=== PATIENT | female | born 1995 | race Hispanic/Latino ===

== ENCOUNTER 2019-01-10 14:33 | Emergency (ER) | payer SELFPAY ==
--- OUTSIDE RECORDS SUMMARY | 2019-01-10 14:35 | XMS REPORT ---
:1995 [facility] Address [address] [place] [address] Dr. Randle [address] [place] [id number] Care Team Providers Name Role Phone Unavailable Unavailable Unavailable Problems This patient has no known problems. Allergies, Adverse Reactions, Alerts This patient has no known allergies or adverse reactions. Medications This patient has no known medications.
[2019-01-10] MEDS ORDERED: DIPHENHYDRAMINE 50 MG/ML VIAL ONE (15:43)
[2019-01-10] MEDS ORDERED: ACETAMINOPHEN 500 MG TAB ONE (15:43)
[2019-01-10] MEDS ORDERED: NA CHLORIDE 0.9% 1,000 ML ONE (15:43)
[2019-01-10 15:50] LABS: Absolute Lymphocytes (CBC) 1.2 K/uL (0.7-4.9); Absolute Monocytes 0.9 K/uL (0.1-1.3); Absolute Neutrophil 11.3 K/uL (1.8-8.0); Basophils % 0.4 % (0-1.3); Eosinophils % 0.9 % (0-4.4); Lymphocytes % 8.9 % (15.3-44.8); MPV 8.7 fL (7.6-11.3); Monocytes % 6.6 % (3.3-12.3); RBC Red Blood Cell Count 3.52 M/uL (3.86-4.86)
[2019-01-10 16:14] LABS: BUN Blood Urea Nitrogen 7 mg/dL (7-18); Bicarbonate 24 mmol/L (21-32); Glucose Level 91 mg/dL (74-106); Potassium 3.8 mmol/L (3.5-5.1); Sodium Level 140 mmol/L (136-145)
[2019-01-10 17:12] LABS: Urine Bacteria 20-50 /HPF (<20); Urine Culture Reflex Order REFLEXED; Urine RBC <5 /HPF (NONE SEEN)
--- NOTE | 2019-01-10 17:41 | ER ---
Nurse's Notes [facility] Name: Marcelina Lozano Age: 23 yrs Sex: Female : 1995 Arrival Date: 01/10/2019 Time: 14:36 Bed Ultrasound Private MD: Diagnosis: Urinary tract infection, site not specified;Migraine Presentation: 01/10 14:48 Presenting complaint: Patient states: N/V that started this morning, pt reports being 5 sg months , reports using an RELIGIOUS EDUCATOR out of [place], denies any vaginal bleeding/or abd cramping or pressure at this time, reports having a headache with blurred vision. Transition of care: patient was not received from another setting of care. Onset of symptoms was January 10, 2019. Risk Assessment: Do you want to hurt yourself or someone else? Patient reports no desire to harm self or others. Initial Sepsis Screen: Does the patient meet any 2 criteria? No. Patient's initial sepsis screen is negative. Does the patient have a suspected source of infection? No. Patient's initial sepsis screen is negative. Care prior to arrival: None. 14:48 Method Of Arrival: Ambulatory sg 14:48 Acuity: CHRIS 3 sg RELIGIOUS EDUCATOR: 15:54 Verified jl7 Historical: - Allergies: 14:48 No Known Allergies; sg - PMHx: 14:48 Asthma; sg - PSHx: 14:48 None; sg - Immunization history:: Adult Immunizations up to date. - Social history:: Smoking status: Patient/guardian denies using tobacco. - Ebola Screening: : Patient negative for fever greater than or equal to 101.5 degrees Fahrenheit, and additional compatible Ebola Virus Disease symptoms Patient denies exposure to infectious person Patient denies travel to an Ebola-affected area in the 21 days before illness onset No symptoms or risks identified at this time. Screenin:30 Abuse screen: Denies threats or abuse. Denies injuries from another. Nutritional jl7 screening: No deficits noted. Tuberculosis screening: No symptoms or risk factors identified. Fall Risk IV access (20 points). Total Bhakta Fall Scale indicates No Risk (0-24 pts). Assessment: 15:30 General: Appears in no apparent distress. uncomfortable, Behavior is calm, cooperative, jl7 appropriate for age. Pain: Complains of pain in WATERS. Neuro: Level of Consciousness is awake, alert, obeys commands, Oriented to person, place, time, situation, Moves all extremities. Full function Gait is steady, Speech is normal. Cardiovascular: Patient's skin is warm and dry. Respiratory: Airway is patent Respiratory effort is even, unlabored, Respiratory pattern is regular, symmetrical. GI: Reports vomiting, Patient currently denies diarrhea, nausea. : No signs and/or symptoms were reported regarding the genitourinary system. EENT: Reports blurred vision. Derm: Skin is pink, warm \T\ dry. 17:54 Reassessment: Pt reports sudden onset of sharp RLQ pain the radiates across the lower jl7 abdomen, rated 8/10. ERP notified, US ordered. Pt will be discharged once US is complete and with a negative report. Vital Signs: 14:47 BP 120 / 75; Pulse 74; Resp 16; Temp 97.6; Pulse Ox 98% on R/A; sg Vitals: 15:54 Heart Tones 142 bpm. jl7 ED Course: 14:36 Patient arrived in ED. rg4 14:43 Arm band placed on. sg 14:49 Triage completed. sg 14:55 Candida Wasserman FNP-C is PHCP. kb 14:55 Favio Moon MD is Attending Physician. kb 15:30 Abdullahi Durán RN is Primary Nurse. jl7 15:30 Patient has correct armband on for positive identification. Bed in low position. Call jl7 light in reach. Side rails up X 1. Pulse ox on. NIBP on. Warm blanket given. 15:30 Initial lab(s) drawn, by me, sent to lab. Urine collected: clean catch specimen, jl7 cloudy. Inserted saline lock: 20 gauge in right antecubital area, using aseptic technique. Blood collected. 18:07 Ultrasound completed. Patient tolerated well. Patient moved back from ultrasound. aa4 18:08 US OB Limited In Process Unspecified. EDMS 18:21 No provider procedures requiring assistance completed. IV discontinued, intact, jl7 bleeding controlled, No redness/swelling at site. Pressure dressing applied. Administered Medications: 15:45 Drug: NS 0.9% 1000 ml Route: IV; Rate: 1000 ml; Site: right antecubital; jl7 16:45 Follow up: IV Status: Completed infusion; IV Intake: 1000ml jl7 15:46 Drug: Benadryl 12.5 mg Route: IVP; Site: right antecubital; jl7 16:30 Follow up: Response: No adverse reaction; Pain is decreased jl7 15:51 Drug: Tylenol 1000 mg Route: PO; jl7 16:30 Follow up: Response: No adverse reaction; Pain is decreased jl7 17:43 Drug: Macrobid 100 mg Route: PO; jl7 17:53 Follow up: Response: No adverse reaction jl7 Intake: 16:45 IV: 1000ml; Total: 1000ml. jl7 Outcome: 17:40 Discharge ordered by MD. renan 18:21 Discharged to home ambulatory. jl7 18:21 Condition: stable 18:21 Discharge instructions given to patient, family, Instructed on discharge instructions, follow up and referral plans. Demonstrated understanding of instructions, follow-up care. 18:22 Patient left the ED. jl7 18:25 Patient left the ED. kb Signatures: Dispatcher [employer] EDCandida Scott, REAR ADMIRAL-C REAR ADMIRAL-Garrick Cadet, RN Tiffanie Olmos4 Mahogany Daigle4 Abdullahi Durán RN RN jl7
--- NOTE | 2019-01-10 17:41 | EDPHYS ---
Physician Documentation [facility] Name: Marcelina Lozano Age: 23 yrs Sex: Female : 1995 Arrival Date: 01/10/2019 Time: 14:36 Bed Ultrasound Private MD: ED Physician Favio Moon HPI: 01/10 17:34 This 23 yrs old Female presents to ER via Ambulatory with complaints of kb Blurred Vision, Headache, Vomiting. 17:34 The patient complains of pain to the top of head. The patient describes the headache as kb constant. Onset: The symptoms/episode began/occurred this morning. Associated signs and symptoms: Pertinent positives: Photophobia blurred vision, vomiting. Severity of symptoms: At its worst the pain was moderate, in the emergency department the pain is unchanged. Headache History: The patient has had previous headaches and this one is similar to previous episodes. The symptoms are alleviated by nothing. the symptoms are aggravated by lights. The patient has experienced similar episodes in the past, a few times. The patient has not recently seen a physician. Pt reports migraine headache that started this morning. Reports photophobia, nausea, vomiting and blurred vision. Has history of migraines. Was seen by neuro years ago, but they didn't find the cause of the migraines at the time. . NEWSPAPER COPY EDITOR: 15:54 Verified jl7 Historical: - Allergies: 14:48 No Known Allergies; sg - PMHx: 14:48 Asthma; sg - PSHx: 14:48 None; sg - Immunization history:: Adult Immunizations up to date. - Social history:: Smoking status: Patient/guardian denies using tobacco. - Ebola Screening: : Patient negative for fever greater than or equal to 101.5 degrees Fahrenheit, and additional compatible Ebola Virus Disease symptoms Patient denies exposure to infectious person Patient denies travel to an Ebola-affected area in the 21 days before illness onset No symptoms or risks identified at this time. ROS: 17:33 Constitutional: Negative for fever, chills, and weight loss, Eyes: Negative for injury, kb pain, redness, and discharge, ENT: Negative for injury, pain, and discharge, Neck: Negative for injury, pain, and swelling, Cardiovascular: Negative for chest pain, palpitations, and edema, Respiratory: Negative for shortness of breath, cough, wheezing, and pleuritic chest pain, MS/Extremity: Negative for injury and deformity, Skin: Negative for injury, rash, and discoloration. 17:33 Abdomen/GI: Positive for nausea and vomiting. 17:33 Neuro: Positive for dizziness, headache, visual changes. Exam: 17:34 Constitutional: This is a well developed, well nourished patient who is awake, alert, kb and in no acute distress. Head/Face: Normocephalic, atraumatic. Eyes: Pupils equal round and reactive to light, extra-ocular motions intact. Lids and lashes normal. Conjunctiva and sclera are non-icteric and not injected. Cornea within normal limits. Periorbital areas with no swelling, redness, or edema. ENT: Nares patent. No nasal discharge, no septal abnormalities noted. Tympanic membranes are normal and external auditory canals are clear. Oropharynx with no redness, swelling, or masses, exudates, or evidence of obstruction, uvula midline. Mucous membranes moist. Neck: Trachea midline, no thyromegaly or masses palpated, and no cervical lymphadenopathy. Supple, full range of motion without nuchal rigidity, or vertebral point tenderness. No Meningismus. Chest/axilla: Normal chest wall appearance and motion. Nontender with no deformity. No lesions are appreciated. Cardiovascular: Regular rate and rhythm with a normal S1 and S2. No gallops, murmurs, or rubs. Normal PMI, no JVD. No pulse deficits. Respiratory: Lungs have equal breath sounds bilaterally, clear to auscultation and percussion. No rales, rhonchi or wheezes noted. No increased work of breathing, no retractions or nasal flaring. Abdomen/GI: Soft, non-tender, with normal bowel sounds. No distension or tympany. No guarding or rebound. No evidence of tenderness throughout. Skin: Warm, dry with normal turgor. Normal color with no rashes, no lesions, and no evidence of cellulitis. MS/ Extremity: Pulses equal, no cyanosis. Neurovascular intact. Full, normal range of motion. Neuro: Awake and alert, GCS 15, oriented to person, place, time, and situation. Cranial nerves II-XII grossly intact. Motor strength 5/5 in all extremities. Sensory grossly intact. Cerebellar exam normal. Normal gait. Vital Signs: 14:47 BP 120 / 75; Pulse 74; Resp 16; Temp 97.6; Pulse Ox 98% on R/A; sg MDM: 14:55 Patient medically screened. kb 17:32 Data reviewed: vital signs, nurses notes. Data interpreted: Pulse oximetry: on room air kb is 98 %. Interpretation: normal. Counseling: I had a detailed discussion with the patient and/or guardian regarding: the historical points, exam findings, and any diagnostic results supporting the discharge/admit diagnosis, lab results, the need for outpatient follow up, a family practitioner, to return to the emergency department if symptoms worsen or persist or if there are any questions or concerns that arise at home. Response to treatment: the patient's symptoms have markedly improved after treatment. 01/10 15:27 Order name: Basic Metabolic Panel; Complete Time: 16:15 kb 01/10 15:27 Order name: CBC with Diff kb 01/10 15:53 Order name: Urine Dipstick--Ancillary (enter results) eb 01/10 15:53 Order name: Urine --Ancillary (enter results) eb 01/10 16:13 Order name: Urine Microscopic Only; Complete Time: 17:13 jl7 01/10 17:13 Order name: Urine Culture EDID 01/10 15:27 Order name: IV Start; Complete Time: 15:50 kb 01/10 15:27 Order name: Urine Dipstick-Ancillary (obtain specimen); Complete Time: 15:51 kb 01/10 15:27 Order name: FHT's; Complete Time: 15:51 kb 01/10 17:42 Order name: US OB Limited kb 01/10 17:20 Order name: PO challenge; Complete Time: 17:38 kb Administered Medications: 15:45 Drug: NS 0.9% 1000 ml Route: IV; Rate: 1000 ml; Site: right antecubital; jl7 16:45 Follow up: IV Status: Completed infusion; IV Intake: 1000ml jl7 15:46 Drug: Benadryl 12.5 mg Route: IVP; Site: right antecubital; jl7 16:30 Follow up: Response: No adverse reaction; Pain is decreased jl7 15:51 Drug: Tylenol 1000 mg Route: PO; jl7 16:30 Follow up: Response: No adverse reaction; Pain is decreased jl7 17:43 Drug: Macrobid 100 mg Route: PO; jl7 17:53 Follow up: Response: No adverse reaction jl7 Disposition: 18:25 Co-signature as Attending Physician, Favio Moon MD. rn Disposition: 01/10/19 17:40 Discharged to Home. Impression: Urinary tract infection, site not specified, Migraine. - Condition is Stable. - Discharge Instructions: Urinary Tract Infection, Adult, [id number], Migraine Headache, [id number]-[id number]. - Prescriptions for Macrobid 100 mg Oral Capsule - take 1 capsule by ORAL route every 12 hours for 5 days; 10 capsule. - Medication Reconciliation Form, Thank You Letter, Antibiotic Education, Prescription Opioid Use form. - Follow up: Emergency Department; When: As needed; Reason: Worsening of condition. Follow up: Private Physician; When: 2 - 3 days; Reason: Recheck today's complaints, Continuance of care, Re-evaluation by your physician. Signatures: Dispatcher [employer] EDCandida Scott, CIARA-C FACE PAINTER-Garrick Cadet RN Favio Sandhu MD MD rn Leal, Jahala, RN RN jl7 Corrections: (The following items were deleted from the chart) 18:22 17:40 01/10/2019 17:40 Discharged to Home. Impression: Urinary tract infection, site jl7 not specified; Migraine. Condition is Stable. Forms are Medication Reconciliation Form, Thank You Letter, Antibiotic Education, Prescription Opioid Use. Follow up: Emergency Department; When: As needed; Reason: Worsening of condition. Follow up: Private Physician; When: 2 - 3 days; Reason: Recheck today's complaints, Continuance of care, Re-evaluation by your physician. kb 18:25 18:22 01/10/2019 17:40 Discharged to Home. Impression: Urinary tract infection, site kb not specified; Migraine. Condition is Stable. Discharge Instructions: Urinary Tract Infection, Adult, Ookn-oc-Jwas, Migraine Headache, Upex-wg-Yzsw. Forms are Medication Reconciliation Form, Thank You Letter, Antibiotic Education, Prescription Opioid Use. Follow up: Emergency Department; When: As needed; Reason: Worsening of condition. Follow up: Private Physician; When: 2 - 3 days; Reason: Recheck today's complaints, Continuance of care, Re-evaluation by your physician. jl7
[2019-01-10] MEDS ORDERED: NITROFURAN MACRO 100 MG CAP PO ONE (17:51)
--- NOTE | 2019-01-10 20:09 | RAD REPORT ---
EXAM DESCRIPTION: US - OB Limited - 01/10/2019 6:08 pm CLINICAL HISTORY: , abdominal pain COMPARISON: None. FINDINGS: A single breech presenting gestation is identified. Anatomic assessment was limited but no abnormality seen. Anatomy is as expected for the gestational age. measurements are as follows: BPD:4.81 Centimeters 20 weeks 4 days HC:18.04 Centimeters 20 weeks 3 days AC:15.27 Centimeters 20 weeks 3 days HL:3.15 Centimeters 20 weeks 3 days FL:3.37 Centimeters 20 weeks 4 days The estimated gestational age (EGA) is 20 weeks 3 days with an VIELKA of 05/27/2019. ratios are n ormal or within acceptable limits. The placenta is grade 0, anterior fundal in location. No low-lying or placenta previa. The amniotic fluid volume is normal. No maternal adnexa abnormality. IMPRESSION: 1. Single, breech gestation with an EGA of 20 weeks 3 days and an VIELKA of the 05/27/2019. 2. No abnormalities are identifiable. ratios are normal or within acceptable limits. 3. Grade 0, anterior fundal placenta with no low-lying or placenta previa. 4. Amniotic fluid volume is normal.
[2019-01-10 20:10] LABS: Urine Blood NEGATIVE (NEG); Urine Glucose NEGATIVE (NEG); Urine Protein 1+ (NEG); Urine pH 5.5 (5.0-7.0)
== END 2019-01-10 18:25 | disposition home or self-care (01) ==
LOC: ER 14:33
DX: G43.909 Migraine, unspecified, not intractable, without status migrainosus (principal); O23.42 Unspecified infection of urinary tract in pregnancy, second trimester; Z3A.20 20 weeks gestation of pregnancy
CPT/HCPCS: 36415; 76815; 80048; 81003; 81015; 81025; 85025; 87086; 87088; 96361; 96374; 99284; J7030